=== PATIENT | male | born 1990 | race Two or more races ===

== ENCOUNTER 2017-06-28 12:05 | Emergency (ER) | payer OTHER ==
[2017-06-28] MEDS: oxyCODONE/APAP 10/325 1 TAB TABLET PO (13:00)
== END 2017-06-28 13:33 | disposition home or self-care (01) ==
LOC: ER 12:05
DX: S83.91XA Sprain of unspecified site of right knee, initial encounter (principal); W51.XXXA Accidental striking against or bumped into by another person, initial encounter; Y93.66 Activity, soccer; Y92.89 Other specified places as the place of occurrence of the external cause; Y99.8 Other external cause status
CPT/HCPCS: 73562; 99284